=== PATIENT | female | born 1990 | race Caucasian/White ===

== ENCOUNTER → 2020-06-29 | Outpatient (CLI) | payer OTHER ==
[~2020-06-29] MED LIST: ATENOLOL 25 MG25 M1 PO; ATIVAN0.5 M1 PO; DOXEPIN 25 MG C25 MG PO; LEVO-T75 MCG PO; LIPITOR10 MG PO; SEROQUEL XR 20200 MG PO
== END ==
LOC: LAB 11:23
PROVIDERS: ATTEND Internal Medicine Gastroenterology
DX: Z01.812 Encounter for preprocedural laboratory examination (principal); Z20.828 Contact with and (suspected) exposure to other viral communicable diseases

== ENCOUNTER → 2020-07-04 | Outpatient (CLI) | payer OTHER ==
[~2020-07-04] VITALS: Ht 157.5 cm; Wt 142.9 kg
--- NOTE | 2020-07-06 15:07 | PATH ---
[facility] [address] [place] [address] PATHOLOGY RPT PROCEDURE Name: YEVGENIY CHAMORRO Room #: REG LATOYA Zarco.#: [id number] Admission: 07/04/20 Date of : 88 Discharge: Report #: [id number] Path Case #: [id number] [facility] Accession Number: [id number] . 01 Material submitted: . PART A: small bowel - SMALL BOWEL BIOPSY R/O CELIAC PART B: esophagus - RANDOM ESOPHAGUS BIOPSY R/O H. PYLORI PART C: colon - RANDOM COLON BIOPSY R/O MICROSCOPIC COLITIS PART D: colon - ASCENDING COLON POLYP. Modifiers: ascending . 01 Clinical history: . CHRONIC ABDOMINAL PAIN, N/V/DIARRHEA, POLYPS . 02 Diagnosis: A. Small bowel, endoscopic biopsy: - Duodenal mucosa without significant pathologic alteration. . B. Stomach, "random esophagus", endoscopic biopsy: - Gastric antral and oxyntic mucosa with features of mild reactive gastropathy (chemical gastritis) and focal intestinal metaplasia. - Negative for active inflammation, dysplasia and malignancy. - Negative for Helicobacter pylori. - Please see comment. . C. Large bowel, "random colon", endoscopic biopsy: - Large bowel mucosa without significant pathologic alteration. . D. Large bowel, "ascending colon polyp", endoscopic biopsy: - Sessile serrated adenoma/polyp; negative for high grade dysplasia and malignancy. . (ALEXK:zion; 07/05/2020) [facility] 07/06/2020 1459 Local . 02 Comment: Specimen B was submitted as random esophagus/rule out Helicobacter pylori. It consists of several fragments of benign gastric antral and oxyntic mucosa, with features of mild chronic gastritis. . (ELIZABETH:zion; 07/05/2020) . 02 Electronically signed: . Stephanie Dodson MD, Pathologist NPI- [id number] . 01 Gross description: . A. The specimen is received in formalin, labeled "Yevgeniy Chamorro, [address] [address] PATHOLOGY RPT PROCEDURE Name: YEVGENIY CHAMORRO [id number] Admission: 07/04/20 Date of : 88 Discharge: Report #: [id number] Path Case #: [id number] small bowel BX" and consists of multiple fragments of pink-chaves tissue measuring 1.0 x 0.4 x 0.3 cm in aggregate which are entirely submitted in A1. . B. The specimen is received in formalin, labeled "[place], Yevgeniy, random BX esophagus" and consists of multiple fragments of pink-chaves tissue measuring 1.4 x 0.4 x 0.3 cm in aggregate which are entirely submitted in B1. . C. The specimen is received in formalin, labeled "[place], Yevgeniy, random colon BX" and consists of multiple fragments of pink-chaves tissue measuring 1.6 x 0.8 x 0.3 cm in aggregate which are entirely submitted in C1. . D. The specimen is received in formalin, labeled "[place], Yevgeniy, ascending colon polyp" and consists of multiple segments of pink-chaves tissue measuring 1.5 x 1.2 x 0.4 cm in aggregate which are entirely submitted in D1. (SDY; 07/04/2020) SYU/SYU 07/04/2020 1638 Local . 02 Microscopic: . Immunohistochemical stain results (properly-controlled): . Helicobacter pylori (B1) - Negative for organisms . (MLK:mml; 07/05/2020) . 02 Pathologist provided ICD-10: D12.2, K63.5, R10.9, R19.7 . 02 CPT . 624801, 992368, 342183, 456804, [id number] Specimen Comment: A courtesy copy of this report has been sent to [phone] Specimen Comment: Report sent to Performed at: [address], [place], [place] [id number] MD Taqueria Starkey MD Phone: [phone] Performed at: [address] [id number] MD Elina Tavares MD Phone: [phone]
== END | disposition home or self-care (01) ==
LOC: GI 08:41
PROVIDERS: ATTEND Internal Medicine Gastroenterology
DX: R10.84 Generalized abdominal pain (principal); R19.7 Diarrhea, unspecified; D12.2 Benign neoplasm of ascending colon; K21.00 Gastro-esophageal reflux disease with esophagitis, without bleeding; K31.9 Disease of stomach and duodenum, unspecified; K29.70 Gastritis, unspecified, without bleeding; I10 Essential (primary) hypertension; E78.00 Pure hypercholesterolemia, unspecified; F31.9 Bipolar disorder, unspecified; F41.9 Anxiety disorder, unspecified; F17.210 Nicotine dependence, cigarettes, uncomplicated; Z98.890 Other specified postprocedural states; Z79.899 Other long term (current) drug therapy; Z90.49 Acquired absence of other specified parts of digestive tract
CPT/HCPCS: 62110; 62900